=== PATIENT | male | born 1955 | race Caucasian/White ===

== ENCOUNTER 2018-08-13 23:11 | Inpatient (IN) ==
[2018-08-13] MEDS ORDERED: Azithromycin 500 MG in D5% in Water 250 ML IVPB ONE (23:21)
[2018-08-13] MEDS ORDERED: Ipratropium/Albuterol Neb 3 ML IH ONE (23:21)
[2018-08-13] MEDS ORDERED: methylPREDNISolone 125 MG/2 ML VIAL IVP ONE (23:21)
[2018-08-13] MEDS ORDERED: 0.9 % Sodium Chloride 1,000 ML IVC ONE (23:21)
[2018-08-13] MEDS ORDERED: cefTRIAXone 2,000 MG in Water for inj. (sterile) 20 ML 10 ML IVP ONE (23:21)
--- NOTE | 2018-08-13 23:21 | Emergency Department Note ---
Disposition Clinical Impression: Acute exacerbation of chronic obstructive airways disease Disposition: Admitted As Inpatient Condition: Fair Referrals: Mary Beth Euceda CNP [Primary Care Provider] - Forms: ED Satisfaction Letter SOB HPI - General Chief Complaint: ED Shortness of Breath/Dyspnea Stated Complaint: difficulty breathing Time Seen by Provider: 08/13/18 23:15 Source: patient, EMS Mode of arrival: EMS Limitations: no limitations Nursing Notes Reviewed: Yes Vital Signs Reviewed: Yes - History of Present Illness Patient reports he has had increased congestion and cough for 7-10 days. In the last 24 hours his breathing is "getting worse" and he is much more wheezy with a dry cough. States his secretions feel thick and he cannot get them up now. States he has had this before with COPD. He usually has his handheld inhalers and aerosols available. He was at his daughter's house and they were not around tonight. He has developed a feeling of chills and possible fever. His temperature here is 101.2. States he is sore in his chest with coughing but den ies other chest pain. He reports some nausea without vomiting as well as diffuse muscle aches and malaise. He has not been having diaphoresis. Denies any history of heart failure or any artery disease but his old record indicates both heart failure, myocardial infarction and previous history of some atrial fibrillation. Denies any lower extremity swelling, immobilization or injury. He states he has been exposed to a grandson who has been ill. He has been on prednisone by his family doctor for the last 5 days without much improvement. He states he has been a smoker since age 10 and he continues to smoke. Pt Subjective Complaint: shortness of breath Onset (ago): week(s) Context: recent illness Severity: moderate, severe Consistency/Duration: gradually worsening Improves with: bronchodilators Worsens with: coughing Known history of: COPD Associated symptoms: Reports: chest pain, pain with inspiration, cough, wheezing, sputum production, nausea/vomiting. Denies: fever, orthopnea, lower extremity pain, polyuria, polydipsia, parasthesias, palpitations, hemoptysis, diaphoresis, syncope, abdominal pain, rash Treatment prior to arrival: oxygen, bronchodilator Cough Description: Voluntary, Bronchospastic, Rattling, Wheezy Cough Frequency: Intermittent Sputum production: No - Related Data Home oxygen amount: 2 liters Home Medications Medication Instructions Recorded Confirmed Daliresp 500 mcg PO DAILY 04/24/15 08/13/18 Lisinopril 20 mg PO DAILY 04/24/15 08/13/18 Oxygen 2 l IH AD 04/24/15 08/13/18 Paroxetine 40 mg PO DAILY 04/24/15 08/13/18 ALPRAZolam [Xanax 0.5 MG Tablet] 0.5 mg PO Q6H 10/29/17 Atorvastatin [Lipitor] 40 mg PO HS 10/29/17 08/13/18 Fluticasone/Vilanterol [Breo 1 each IH 08/13/18 Ellipta 100-25 Mcg INH] Ibuprofen [Ibu] 800 mg PO 08/13/18 Tiotropium [Spiriva] 18 mcg IH 0700 08/13/18 08/13/18 Tramadol HCl [Ultram] 100 mg PO TID PRN 08/13/18 08/13/18 predniSONE [PredniSONE] 20 mg PO DAILY 08/13/18 08/13/18 Previous Rx's Medication Instructions Recorded Amoxicillin/Clavulanate [Augmentin] 875 mg PO BIDWM #10 tablet 10/30/17 Allergies Allergy/AdvReac Type Severity Reaction Status Date / Time No Known Allergies Allergy Verified 08/13/18 23:19 All systems ED: reviewed and negative except as stated. Past Medical History - Past Medical History Attestation: Yes The following information was validated with the patient. Source: patient, old records reviewed, obtained from family, nursing notes reviewed Medical history: Reports: arthritis, asthma, atrial fibrillation, CHF, COPD, GERD, hyperlipidemia, hypertension, myocardial infarction Surgical history: Reports: orthopedic, other (Bilateral leg surgery) Psychiatric history: Reports: anxiety, bipolar, depression - Social History Smoking Status: Current every day smoker Smokeless Tobacco Status: No Alcohol use: Reports: recent Drug use: Reports: none Physical Exam - General Limitations: physical limitation General appearance: alert, anxious - Head Head exam: atraumatic, normocephalic, normal inspection - Eye Eye exam: Present: normal appearance, PERRL, EOMI - ENT ENT exam: normal exam, normal oropharynx, mucous membranes moist - Neck Neck exam: Present: normal inspection, full ROM, trachea midline. Absent: tenderness, meningismus, lymphadenopathy - Chest Chest inspection: Present: normal inspection, symmetric chest wall rise - Respiratory Respiratory exam: Present: respiratory distress, wheezes, prolonged expiratory phase. Absent: accessory muscle use - Cardiovascular Cardiovascular exam: Present: regular rate, normal rhythm, tachycardia, normal heart sounds. Absent: JVD - Abdominal Exam Abdominal exam: Present: soft, Non-Tender, normal bowel sounds. Absent: tenderness, distention, guarding, rebound, rigidity - Extremities Exam Extremities exam: Present: normal inspection, full ROM, normal capillary refill. Absent: tenderness, pedal edema, calf tenderness - Expanded Lower Extremity Exam Neurovascular/Tendon exam: Present: normal capillary refill. Absent: motor deficit, sensory deficit, tendon deficit Gait: not tested/not observed - Back Exam Back exam: Present: normal inspection, full ROM. Absent: tenderness - Neurological Exam Neurological exam: Present: alert, oriented X3 - Psychiatric Psychiatric exam: Present: normal affect, normal mood - Skin Skin exam: Present: warm, dry, intact, normal color. Absent: diaphoresis, pa llor Course Course Narrative: 0020: With return of testing, the patient is improved but still has a heart rate of 130. He is saturating 99% on supplemental oxygen. Blood pressure is currently 145/91. He has been able to rest and sleep the department. Care is discussed with Dr. Randall for further hydration, antibiotic coverage and steroid administration. He will need to continue with aerosols per respiratory protocol. Vital Signs Temperature 101.2 F H 08/13/18 23:13 Pulse Rate 124 08/13/18 23:13 Respiratory Rate 28 08/13/18 23:13 Blood Pressure 139/82 08/13/18 23:13 O2 Sat by Pulse Oximetry 92 08/13/18 23:13 Temperature 101.2 F H 08/13/18 23:13 Pulse Rate 124 08/14/18 00:07 Respiratory Rate 34 08/14/18 00:07 Blood Pressure 151/103 08/14/18 00:07 O2 Sat by Pulse Oximetry 94 08/14/18 00:07 Oxygen Delivery Oxygen Delivery Nasal Cannula Shortness of Breath/Dyspnea - Differential Diagnosis Likely: acute exacerbation of chronic obstructive airways disease, congestive heart failure, pneumonia, asthma with exacerbation - Medical Records Medical records reviewed: Yes I reviewed the patient's medical records. - Lab Data Lab results reviewed: Yes I reviewed the patient's lab results. Lab results narrative: Influenza A and influenza B are negative. Result diagrams: 08/13/18 23:41 08/13/18 23:41 Lab Results 08/13/18 08/13/18 08/13/18 Range/Units 23:41 23:41 23:55 WBC 10.1 (4.3-11.1) K/mcL RBC 4.20 (4.19-5.50) M/mcL Hgb 13.4 (12.9-16.9) g/dL Hct 40.0 (37.5-50.1) % MCV 95.2 (83.0-100.0) fL MCH 31.9 (28.0-33.3) pg MCHC 33.5 (31.6-35.5) g/dL RDW 12.6 (11.5-14.5) % Plt Count 260 (140-400) K/mcL MPV 9.4 (9.4-12.4) fL Immature Gran % 1.1 (0-4) % Seg Neutrophils % 81.9 % Lymphocytes % 6.6 % Monocytes % 9.7 % Eosinophils % 0.1 % Basophils % 0.6 % Neutrophils # 8.3 (1.6-8.9) K/mcL Lymphocytes # 0.7 (0.6-4.6) K/mcL Monocytes # 1.0 (0.0-1.3) K/mcL Eosinophils # 0.0 (0.0-0.6) K/mcL Basophils # 0.1 (0.0-0.2) K/mcL Sodium 138 (136-145) mEq/L Potassium 4.3 (3.5-5.1) mEq/L Chloride 102 (98-107) mEq/L Carbon Dioxide 31 H (23-29) mEq/L BUN 17 (8-23) mg/dL Creatinine 0.91 (0.70-1.30) mg/dL Est GFR ( Amer) > 60 (> 60) Est GFR (Non-Af Amer) > 60 (> 60) BUN/Creatinine Ratio 19 (6-26) Glucose 193 H (70-105) mg/dL Calculated Osmolality 293 (280-300) Lactic Acid 1.6 (0.5-2.2) mmol/L Calcium 9.0 (8.6-10.3) mg/dL Troponin I < 0.03 (< 0.04) ng/mL - Radiology Data Radiology results reviewed: Yes I reviewed the patient's radiology results. Single view chest x-ray is performed. This does not demonstrate evidence for infiltrate, effusion, pneumothorax, foreign body or heart failure. The cardiac silhouette is normal. I do not see abnormality to the osseous structures of the chest. This is on my interpretation. Impressions Chest X-Ray 08/13/18 23:21 IMPRESSION: No acute cardiopulmonary abnormality. D/ / Denys Sumner MD / Denys Sumner MD Interpreting Provider: Denys Sumner MD - EKG Data EKG attestation: Yes I reviewed and interpreted this EKG. EKG shows normal: Reports: sinus rhythm, axis, intervals, QRS complexes, ST-T waves Rate: Reports: tachycardia (131) Interpretation: Reports: no acute changes, other (Sinus tachycardia)
[2018-08-13 23:56] LABS: Basophils # 0.1 K/mcL (0.0-0.2); Basophils % 0.6 %; Eosinophils % 0.1 %; Hemoglobin 13.4 g/dL (12.9-16.9); Immature Granulocytes % 1.1 % (0-4); Lymphocytes # 0.7 K/mcL (0.6-4.6); Lymphocytes % 6.6 %; Mean Corpuscular HGB Conc 33.5 g/dL (31.6-35.5); Mean Corpuscular Hemoglobin 31.9 pg (28.0-33.3); Mean Corpuscular Volume 95.2 fL (83.0-100.0); Mean Platelet Volume 9.4 fL (9.4-12.4); Monocytes % 9.7 %; Neutrophils # 8.3 K/mcL (1.6-8.9); Platelet Count 260 K/mcL (140-400); Red Cell Distribution Width 12.6 % (11.5-14.5); Segmented Neutrophils % 81.9 %
[2018-08-14 00:15] LABS: BUN/Creatinine Ratio 19 (6-26); Blood Urea Nitrogen 17 mg/dL (8-23); Carbon Dioxide 31 mEq/L (23-29); Chloride 102 mEq/L (98-107); Glucose 193 mg/dL (70-105); Osmolality,Calculated 293 (280-300); Potassium 4.3 mEq/L (3.5-5.1); Sodium 138 mEq/L (136-145); eGFR For Non-African Americans > 60 (> 60)
[2018-08-14 00:16] LABS: Troponin I < 0.03 ng/mL (< 0.04)
[2018-08-14] MEDS ORDERED: Ondansetron ODT 4 MG TAB.RAPDIS SL PRN (01:10)
[2018-08-14] MEDS ORDERED: traMADol 50 MG TABLET PO PRN (01:10)
[2018-08-14] MEDS ORDERED: Naloxone 0.4 MG/ML INJ IVP PRN (01:10)
[2018-08-14] MEDS: 0.9 % Sodium Chloride 1,000 ML IVC SCH ×2 (02:02→08:25)
[2018-08-14] MEDS: Ipratropium/Albuterol Neb 3 ML IH SCH ×4 (04:02→21:13)
[2018-08-14] MEDS: Albuterol 2.5 MG/3 ML NEBULIZER IH PRN ×2 (06:07→17:50)
[2018-08-14] MEDS: predniSONE 20 MG TABLET PO SCH ×2 (08:25→15:54)
[2018-08-14] MEDS: Lisinopril 20 MG TABLET PO SCH (08:25)
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
[2018-08-14] MEDS: cefTRIAXone 2,000 MG in 0.9 % Sodium Chloride Mini Bag 100 ML IVPB SCH (15:55)
[2018-08-14] MEDS: Azithromycin 500 MG in D5% in Water 250 ML IVPB SCH (15:56)
[2018-08-14] MEDS: Budesonide/Formoterol 160/4.5 1 PUFF INH IH SCH ×2 (17:41→21:13)
[2018-08-15] MEDS: Ipratropium/Albuterol Neb 3 ML IH SCH ×4 (03:11→22:45)
[2018-08-15] MEDS: predniSONE 20 MG TABLET PO SCH ×2 (07:44→16:42)
[2018-08-15] MEDS: Albuterol 2.5 MG/3 ML NEBULIZER IH PRN ×2 (08:05→20:22)
[2018-08-15] MEDS: Acetaminophen 325 MG TABLET PO PRN (08:11)
[2018-08-15] MEDS: Lisinopril 20 MG TABLET PO SCH (08:13)
[2018-08-15 08:16] LABS: Basophils % 0.3 %; Hematocrit 40.3 % (37.5-50.1); Hemoglobin 13.2 g/dL (12.9-16.9); Immature Granulocytes % 0.5 % (0-4); Lymphocytes # 0.9 K/mcL (0.6-4.6); Lymphocytes % 9.1 %; Mean Corpuscular HGB Conc 32.8 g/dL (31.6-35.5); Mean Corpuscular Volume 94.6 fL (83.0-100.0); Mean Platelet Volume 9.4 fL (9.4-12.4); Monocytes % 10.1 %; Neutrophils # 7.7 K/mcL (1.6-8.9); Platelet Count 229 K/mcL (140-400); Red Blood Count 4.26 M/mcL (4.19-5.50)
[2018-08-15] MEDS: Budesonide/Formoterol 160/4.5 1 PUFF INH IH SCH ×2 (10:35→22:46)
--- NOTE | 2018-08-15 11:09 | Internal Med Progress Note ---
Date of Encounter: 08/15/18 Time of Encounter: 11:00 - Assessment and plan (1) COPD exacerbation Current Visit: No Status: Acute Assessment and plan: August 15. Continue prednisone, Symbicort, Singulair, and antibiotics with n ebulizers. (2) Hypertension Current Visit: No Status: Chronic Assessment and plan: August 15. Continue lisinopril Qualifiers: Hypertension type: essential hypertension Qualified Code(s): I10 - Essential (primary) hypertension (3) Anxiety and depression Current Visit: No Status: Acute Assessment and plan: August 15. Continue Paxil. Xanax does not appear necessary. - Subjective Interval history: August 15. He has no new complaints and feels better. - Constitutional Vitals: Temp Pulse Resp BP Pulse Ox 100.7 F H 116 16 123/78 93 08/15/18 09:03 08/15/18 07:42 08/15/18 10:35 08/15/18 07:42 08/15/18 10:35 Exam: He is sitting in bed wearing oxygen by mask. His lungs show decreased wheezing from yesterday. No inspiratory crackles are heard. He is less dyspneic overall. I reviewed his medications and lab results. Internal Medicine: Result - Labs CBC & Chem 7: 08/15/18 07:30 08/13/18 23:41 Labs: Short CBC 08/15/18 Range/Units 07:30 WBC 9.6 (4.3-11.1) K/mcL Hgb 13.2 (12.9-16.9) g/dL Hct 40.3 (37.5-50.1) % Plt Count 229 (140-400) K/mcL Neutrophils # 7.7 (1.6-8.9) K/mcL Consult Discharge Plan - Plan Referrals: Mary Beth Euceda, [employer] [Primary Care Provider] - 1 week
[2018-08-15] MEDS: cefTRIAXone 2,000 MG in 0.9 % Sodium Chloride Mini Bag 100 ML IVPB SCH (16:42)
[2018-08-15] MEDS: Azithromycin 500 MG in D5% in Water 250 ML IVPB SCH (17:56)
[2018-08-16] MEDS: Acetaminophen 325 MG TABLET PO PRN ×2 (02:56→14:05)
[2018-08-16] MEDS: Ipratropium/Albuterol Neb 3 ML IH SCH ×4 (04:14→21:50)
[2018-08-16] MEDS: predniSONE 20 MG TABLET PO SCH (07:29)
[2018-08-16] MEDS: Lisinopril 20 MG TABLET PO SCH (08:18)
[2018-08-16] MEDS: Budesonide/Formoterol 160/4.5 1 PUFF INH IH SCH ×2 (09:44→21:50)
--- NOTE | 2018-08-16 11:45 | Internal Med Progress Note ---
Date of Encounter: 08/16/18 Time of Encounter: 11:25 - Assessment and plan (1) COPD exacerbation Current Visit: No Status: Acute Assessment and plan: August 15. Continue prednisone, Symbicort, Singulair, and antibiotics with n ebulizers. August 16. Continue present regimen. Possible discharge home tomorrow if stable. (2) Hypertension Current Visit: No Status: Chronic Assessment and plan: August 15. Continue lisinopril Qualifiers: Hypertension type: essential hypertension Qualified Code(s): I10 - Essential (primary) hypertension (3) Anxiety and depression Current Visit: No Status: Acute Assessment and plan: August 15. Continue Paxil. Xanax does not appear necessary. - Subjective Interval history: August 15. He has no new complaints and feels better. August 16. He has no new complaints. He is still dyspneic. He has minimally productive cough. - Constitutional Vitals: Temp Pulse Resp BP Pulse Ox 100.3 F H 110 18 119/75 91 08/16/18 11:00 08/16/18 11:00 08/16/18 11:00 08/16/18 11:00 08/16/18 11:00 Exam: He appears dyspneic lying in bed. His affect is overall cheerful. I reviewed his medications and lab results. Chest CT done earlier today showed right upper lobe and right lower lobe infiltrate with nonspecific mediastinal lymphadenopathy. Follow-up CT scan in 6 months was recommended. Internal Medicine: Result - Labs CBC & Chem 7: 08/15/18 07:30 08/13/18 23:41 - Impressions Impressions Chest CT 08/16/18 09:49 IMPRESSION: Mild bibasilar bronchiectasis with bronchial wall thickening and a tree-in-bud nodular infiltrate in the right upper and lower lobes suspicious for an inflammatory/infectious process/pneumonia as questioned clinically. Complete assessment of the lungs is compromised by respiratory motion. Nonspecific mediastinal lymphadenopathy likely benign and reactive. Follow-up CT in 6 months is recommended. Small pericardial effusion. Atherosclerotic vascular calcifications. Emphysematous changes. D/ / 08/16/2018 10:51:32 Juan M Bernardo MD / [place] Interpreting Provider: Juan M Bernardo MD Consult Discharge Plan - Plan Referrals: Mary Beth Euceda CNP [Primary Care Provider] - 1 week
--- NOTE | 2018-08-16 12:09 | Internal Med History&Physical ---
Date of Encounter: 08/17/18 Time of Encounter: 15:00 Assessment and Plan (1) COPD exacerbation Current visit: No Status: Acute (2) Hypertension Current visit: No Status: Chronic Qualifiers: Hypertension type: essential hypertension Qualified Code(s): I10 - Essential (primary) hypertension (3) Anxiety and depression Current visit: No Status: Acute Internal Medicine - H&P: HPI Chief complaint: Dyspnea Admitted From: Emergency Dept Plans for Post Hospital Care: Home History of present illness: Mr. Maciel is a 62 year old male Past Med Surg Social Fam HX - Past Medical History Medical history: arthritis, asthma, atrial fibrillation, CHF, COPD, GERD, hyperlipidemia, hypertension, myocardial infarction Psychiatric history: anxiety, bipolar, depression - Past Surgical History Surgical History: orthopedic, other Additional surgical history: bilat leg sx, - Social History Smoking Status: Current every day smoker Packs per day: 1.5 Smokeless Tobacco Status: No Alcohol use: recent Drug use: none Internal Medicine - H&P: Meds Daliresp 500 mcg PO DAILY 04/24/15 [History] Lisinopril 20 mg PO DAILY 04/24/15 [History] Paroxetine 40 mg PO DAILY 04/24/15 [History] RX: Oxygen 2 l IH AD 04/24/15 [History] RX: ALPRAZolam [Xanax 0.5 MG Tablet] 0.5 mg PO Q6H 10/29/17 [History] RX: Atorvastatin [Lipitor] 40 mg PO HS 10/29/17 [History] Amoxicillin/Clavulanate [Augmentin] 875 mg PO BIDWM #10 tablet 10/30/17 [Rx] Fluticasone/Vilanterol [Breo Ellipta 100-25 Mcg INH] 1 each IH 08/13/18 [History] Ibuprofen [Ibu] 800 mg PO 08/13/18 [History] RX: predniSONE [PredniSONE] 20 mg PO DAILY 08/13/18 [History] Tiotropium [Spiriva] 18 mcg IH 0700 08/13/18 [History] Tramadol HCl [Ultram] 100 mg PO TID PRN 08/13/18 [History] Allergy/AdvReac Type Severity Reaction Status Date / Time No Known Allergies Allergy Verified 08/13/18 23:19 All Systems PM: A 10-system review of systems was performed and is negative for pertinent findings except as documented above in the HPI. - Constitutional Vitals: Temp Pulse Resp BP Pulse Ox 100.3 F H 110 18 119/75 91 08/16/18 11:00 08/16/18 11:00 08/16/18 11:00 08/16/18 11:00 08/16/18 11:00 Internal Med - H&P Results - Labs CBC & Chem 7: 08/17/18 04:43 08/13/18 23:41 - Impressions ITS Impressions Chest X-Ray 08/13/18 23:21 IMPRESSION: No acute cardiopulmonary abnormality. D/ / Denys Sumner MD / Denys Sumner MD Interpreting Provider: Denys Sumner MD Chest CT 08/16/18 09:49 IMPRESSION: Mild bibasilar bronchiectasis with bronchial wall thickening and a tree-in-bud nodular infiltrate in the right upper and lower lobes suspicious for an inflammatory/infectious process/pneumonia as questioned clinically. Complete assessment of the lungs is compromised by respiratory motion. Nonspecific mediastinal lymphadenopathy likely benign and reactive. Follow-up CT in 6 months is recommended. Small pericardial effusion. Atherosclerotic vascular calcifications. Emphysematous changes. D/ / 08/16/2018 10:51:32 Juan M Bernardo MD / [place] Interpreting Provider: Juan M Bernardo MD
[2018-08-16] MEDS: Azithromycin 500 MG in D5% in Water 250 ML IVPB SCH (17:05)
[2018-08-16] MEDS: predniSONE 10 MG TABLET PO SCH (17:05)
[2018-08-16] MEDS: cefTRIAXone 2,000 MG in 0.9 % Sodium Chloride Mini Bag 100 ML IVPB SCH (18:13)
[2018-08-17] MEDS ORDERED: Mag Hydrox/Al Hydrox/Simeth 30 ML UDC PO PRN (01:36)
[2018-08-17] MEDS: Ipratropium/Albuterol Neb 3 ML IH SCH ×2 (03:29→10:32)
[2018-08-17 05:21] LABS: Basophils % 0.5 %; Hematocrit 37.5 % (37.5-50.1); Hemoglobin 12.4 g/dL (12.9-16.9); Immature Granulocytes % 0.5 % (0-4); Lymphocytes # 1.3 K/mcL (0.6-4.6); Lymphocytes % 23.3 %; Mean Corpuscular HGB Conc 33.1 g/dL (31.6-35.5); Mean Corpuscular Hemoglobin 30.8 pg (28.0-33.3); Mean Corpuscular Volume 93.3 fL (83.0-100.0); Mean Platelet Volume 9.3 fL (9.4-12.4); Neutrophils # 3.3 K/mcL (1.6-8.9); Platelet Count 203 K/mcL (140-400); Red Blood Count 4.02 M/mcL (4.19-5.50); Red Cell Distribution Width 12.9 % (11.5-14.5); Segmented Neutrophils % 58.7 %
[2018-08-17] MEDS ORDERED: *HR* Enoxaparin 40 MG/0.4 ML SYRINGE SQ SCH (06:00)
[2018-08-17 08:10] VITALS: BP 106/59
[2018-08-17] MEDS: predniSONE 10 MG TABLET PO SCH (08:29)
[2018-08-17] MEDS: Lisinopril 20 MG TABLET PO SCH (08:29)
--- NOTE | 2018-08-17 08:46 | Discharge Summary ---
Orders not resulted at time of discharge: Pending orders 08/13/18 23:55 Culture,Blood [BC] Stat Date of Encounter: 08/17/18 Time of Encounter: 08:35 - Discharge Diagnosis (1) COPD exacerbation Priority: Primary Status: Acute (2) Pneumonia Priority: Secondary Status: Acute Qualifiers: Pneumonia type: due to unspecified organism Laterality: right Lung location: unspecified part of lung Qualified Code(s): J18.9 - Pneumonia, unspecified organism (3) Hypertension Priority: Secondary Status: Chronic Qualifiers: Hypertension type: essential hypertension Qualified Code(s): I10 - Essential (primary) hypertension (4) Anxiety and depression Priority: Secondary Status: Chronic Hospital course: Mr. Maciel is a 62 year old male who came to emergency room stating he had increased dyspnea onset approximate 5 days ago. He saw his PCP who gave him a prescription for prednisone and Augmentin. There was little improvement so he came to emergency room. He was evaluated and was felt to have exacerbation of COPD and admitted to [facility] floor for ongoing care needs. Initial orders were written by the emergency room physician. I saw him on August 14 performed a history and physical. He was started empirically on IV Rocephin and Zithromax with Solu-Medrol. Influenza testing in emergency room was negative for influenza A and B. He initially made slow progress in recovery. Chest CT was ordered 08/16/2018 to further evaluate. There was evidence of right upper lobe and right lower lobe infiltrates suspicious for pneumonia. He had additional gradual improvement and felt stable for discharge home on August 17. He will continue with oral antibiotic and probiotic for 2 additional days at discharge. WBC was normal at 5.6 on day of discharge with no left shift on differential. He will follow with his PCP Mary Beth Euceda CNP within 1 week. I encouraged him to become a nonsmoker. He will continue to use home oxygen. - Time Spent with Patient Total time spent providing and/or coordinating discharge services: - Discharge Medications Prescriptions: New Cefuroxime PO [Ceftin] 500 mg PO Q12HR #4 tablet Azithromycin [Zithromax] 250 mg PO DAILY #2 tablet Lactobacillus [Culturelle] 1 each PO BID #4 cap.sprink Continue Oxygen 2 l IH AD Lisinopril 20 mg PO DAILY Paroxetine 40 mg PO DAILY Daliresp 500 mcg PO DAILY Atorvastatin [Lipitor] 40 mg PO HS ALPRAZolam [Xanax 0.5 MG Tablet] 0.5 mg PO Q6H Tramadol HCl [Ultram] 100 mg PO TID PRN PRN Reason: Pain predniSONE [PredniSONE] 20 mg PO DAILY Tiotropium [Spiriva] 18 mcg IH 0700 Ibuprofen [Ibu] 800 mg PO Fluticasone/Vilanterol [Breo Ellipta 100-25 Mcg INH] 1 each IH Discontinued Amoxicillin/Clavulanate [Augmentin] 875 mg PO BIDWM #10 tablet Home Medications: Daliresp 500 mcg PO DAILY 04/24/15 [History] Lisinopril 20 mg PO DAILY 04/24/15 [History] Oxygen 2 l IH AD 04/24/15 [History] Paroxetine 40 mg PO DAILY 04/24/15 [History] ALPRAZolam [Xanax 0.5 MG Tablet] 0.5 mg PO Q6H 10/29/17 [History] Atorvastatin [Lipitor] 40 mg PO HS 10/29/17 [History] Fluticasone/Vilanterol [Breo Ellipta 100-25 Mcg INH] 1 each IH 08/13/18 [History] Ibuprofen [Ibu] 800 mg PO 08/13/18 [History] Tiotropium [Spiriva] 18 mcg IH 0700 08/13/18 [History] Tramadol HCl [Ultram] 100 mg PO TID PRN 08/13/18 [History] predniSONE [PredniSONE] 20 mg PO DAILY 08/13/18 [History] Azithromycin [Zithromax] 250 mg PO DAILY #2 tablet 08/17/18 [Rx] Cefuroxime PO [Ceftin] 500 mg PO Q12HR #4 tablet 08/17/18 [Rx] Lactobacillus [Culturelle] 1 each PO BID #4 cap.sprink 08/17/18 [Rx] Allergies/Adverse Reactions: Allergy/AdvReac Type Severity Reaction Status Date / Time No Known Allergies Allergy Verified 08/13/18 23:19 Date of admission: 08/16/18 11:43 Primary care physician: Mary Beth Euceda CNP - Constitutional Vitals: Temp Pulse Resp BP Pulse Ox 98.6 F 98 17 106/59 93 08/17/18 08:08 08/17/18 08:08 08/17/18 08:08 08/17/18 08:08 08/17/18 08:08 - Patient Status Disposition: Home, Self-Care Condition: Fair - Discharge Instructions Follow Up With: Mary Beth Euceda CNP [Primary Care Provider] - 1 week - Diet and Activity Activity: resume usual activities as tolerated, wear oxygen at all times Diet: advance to your usual diet
[2018-08-17] MEDS: Budesonide/Formoterol 160/4.5 1 PUFF INH IH SCH (10:32)
--- NOTE | 2018-08-17 20:09 | Electrocardiograph Report ---
[place] [id number] Test Date: 2018-08-13 Pat Name: Dean Maciel Department: EDP-14 Room: [facility] Gender: M Professional Engineer: : [id number] Requested By: Rodney Montero Order Number: [id number] Reading MD: Elena Ybarra Measurements Intervals Premium Rate: 131 P: 82 TX: 135 QRS: 84 QRSD: 84 T: 74 QT: 273 QTc: 403 Interpretive Statements Sinus tachycardia Borderline right axis deviation Electronically Signed On 08-17-2018 20:08:18 EST by Elena Ybarra
== END 2018-08-17 12:00 | disposition home or self-care (01) | DRG 190 ==
LOC: EMEROOPIK 23:11 → INPPIK 23:11
PROVIDERS: ADMIT Internal Medicine; ATTEND Internal Medicine

== ENCOUNTER 2018-10-04 20:59 | Inpatient (IN) ==
--- NOTE | 2018-10-04 21:17 | Emergency Department Note ---
Disposition Clinical Impression: Pneumonia Disposition: Admitted As Inpatient Condition: Good Referrals: Mary Beth Euceda, IAM [Primary Care Provider] - Forms: ED Satisfaction Letter Time of Disposition: 22:30 SOB HPI - General Chief Complaint: ED Shortness of Breath/Dyspnea Stated Complaint: Difficulty breathing Time Seen by Provider: 10/04/18 21:17 Source: patient, EMS Mode of arrival: EMS Limitations: no limitations Nursing Notes Reviewed: Yes Vital Signs Reviewed: Yes - History of Present Illness 63-year-old male who presents today with 3 days of worsening shortness of breath and cough. He has a history of COPD and wears 2 L nasal cannula all the time. He states his been drinking lots of water and using lots of albuterol home but he states his disability loosening up. He states that he has not recently been on steroids he has had to be hospitalized in the past for his breathing. He has not been on any recent antibiotics. Patient states he is a smoker. He states he has had a fever and a productive cough at home. Pt Subjective Complaint: shortness of breath - Related Data Home Medications Medication Instructions Recorded Confirmed Daliresp 500 mcg PO DAILY 04/24/15 08/13/18 Lisinopril 20 mg PO DAILY 04/24/15 08/13/18 Oxygen 2 l IH AD 04/24/15 08/13/18 Paroxetine 40 mg PO DAILY 04/24/15 08/13/18 ALPRAZolam [Xanax 0.5 MG Tablet] 0.5 mg PO Q6H 10/29/17 Atorvastatin [Lipitor] 40 mg PO HS 10/29/17 08/13/18 Fluticasone/Vilanterol [Breo 1 each IH 08/13/18 Ellipta 100-25 Mcg INH] Ibuprofen [Ibu] 800 mg PO 08/13/18 Tiotropium [Spiriva] 18 mcg IH 0700 08/13/18 08/13/18 Tramadol HCl [Ultram] 100 mg PO TID PRN 08/13/18 08/13/18 predniSONE [PredniSONE] 20 mg PO DAILY 08/13/18 08/13/18 Previous Rx's Medication Instructions Recorded Azithromycin [Zithromax] 250 mg PO DAILY #2 tablet 08/17/18 Cefuroxime PO [Ceftin] 500 mg PO Q12HR #4 tablet 08/17/18 Lactobacillus [Culturelle] 1 each PO BID #4 cap.sprink 08/17/18 Allergies Allergy/AdvReac Type Severity Reaction Status Date / Time No Known Allergies Allergy Verified 08/13/18 23:19 Review of Systems: All other systems are negative except as noted/marked Chart generated with voice recognition software Nursing notes reviewed Old records reviewed Past Medical History - Past Medical History Attestation: Yes The following information was validated with the patient. Source: patient, old records reviewed, nursing notes reviewed Medical history: Reports: arthritis, asthma, atrial fibrillation, CHF, COPD, GERD, hyperlipidemia, hypertension, myocardial infarction Surgical history: Reports: orthopedic, other Psychiatric history: Reports: anxiety, bipolar, depression - Social History Smoking Status: Current every day smoker Smokeless Tobacco Status: No Alcohol use: Reports: recent Drug use: Reports: none Physical Exam General: Mild distress Head: normocephalic, atraumatic Eyes: EOMI, PERRLA mouth: Dry mucous membranes Neck: NO CLA, Supple Chest wall: Diminished coarse lung sounds bilaterally Lungs: Tachypneic Heart: Tachycardic Abd: soft, nontender, BS normal : deferred MSK: strength equal in all four extremities Ext: moves all four extremities, no obvious deformities Skin: cap refill normal, warm, dry neuro : CN2-12 grossly intact, A&Ox3 Psych: normal affect, not anxious - General Limitations: no limitations General appearance: alert Course Vital Signs O2 Sat by Pulse Oximetry 93 10/04/18 21:00 Temperature 98.9 F 10/04/18 21:02 Pulse Rate 114 10/04/18 22:28 Respiratory Rate 24 10/04/18 22:28 Blood Pressure 125/54 10/04/18 22:28 O2 Sat by Pulse Oximetry 92 10/04/18 22:28 Oxygen Delivery Oxygen Delivery Nasal Cannula Shortness of Breath/Dyspnea - [facility] Narrative Medical decision making narrative: 63-year-old male presents today with worsening shortness of breath for last 3 days. He has pneumonia today. He is remaining tachycardic beginning of a fluids. I think some of his tachycardia is all the albuterol is had. We will give him a Xopenex is still wheezing. We got cultures be started antibiotics. Again some magnesium to help with his breathing. He states is feeling better at this time. He is satting 93-94% on his 3 L nasal cannula. He is resting comfortably on reevaluation. He still wheezing but it is improving. I spoke with Dr. Randall about this patient he was agreeable to keeping him here. - Medical Records Medical records reviewed: Yes I reviewed the patient's medical records. - Lab Data Lab results reviewed: Yes I reviewed the patient's lab results. Result diagrams: 10/04/18 21:38 10/04/18 21:38 Lab Results 10/04/18 10/04/18 10/04/18 Range/Units 21:38 21:38 21:38 WBC 16.3 H (4.3-11.1) K/mcL RBC 3.49 L (4.19-5.50) M/mcL Hgb 10.9 L (12.9-16.9) g/dL Hct 32.9 L (37.5-50.1) % MCV 94.3 (83.0-100.0) fL MCH 31.2 (28.0-33.3) pg MCHC 33.1 (31.6-35.5) g/dL RDW 13.4 (11.5-14.5) % Plt Count 295 (140-400) K/mcL MPV 9.8 (9.4-12.4) fL Immature Gran % 0.4 (0-4) % Seg Neutrophils % 74.9 % Lymphocytes % 12.7 % Monocytes % 11.2 % Eosinophils % 0.4 % Basophils % 0.4 % Neutrophils # 12.2 H (1.6-8.9) K/mcL Lymphocytes # 2.1 (0.6-4.6) K/mcL Monocytes # 1.8 H (0.0-1.3) K/mcL Eosinophils # 0.1 (0.0-0.6) K/mcL Basophils # 0.1 (0.0-0.2) K/mcL PT 15.0 H (9.4-12.1) Seconds INR 1.3 APTT 33.5 (26.0-36.0) Seconds Sodium 134 L (136-145) mEq/L Potassium 3.9 (3.5-5.1) mEq/L Chloride 97 L (98-107) mEq/L Carbon Dioxide 29 (23-29) mEq/L BUN 19 (8-23) mg/dL Creatinine 0.88 (0.70-1.30) mg/dL Est GFR ( Amer) > 60 (> 60) Est GFR (Non-Af Amer) > 60 (> 60) BUN/Creatinine Ratio 22 (6-26) Glucose 202 H (70-105) mg/dL Calculated Osmolality 286 (280-300) Lactic Acid (0.5-2.2) mmol/L Calcium 9.7 (8.6-10.3) mg/dL Phosphorus 2.1 L (2.7-4.5) mg/dL Magnesium 1.8 (1.6-2.6) mg/dL Total Bilirubin 0.4 (0.3-1.0) mg/dL Direct Bilirubin 0.0 (0.0-0.2) mg/dL Indirect Bilirubin 0.4 (0.0-1.2) mg/dL AST 10 L (13-39) Units/L ALT 11 (7-52) Units/L Alkaline Phosphatase 85 (34-104) Units/L Troponin I < 0.03 (< 0.04) ng/mL Serum Total Protein 7.5 (6.4-8.9) g/dL Albumin 3.9 (3.5-5.7) g/dL Globulin 3.6 H (2.4-3.5) g/dL Albumin/Globulin Ratio 1.1 (1.1-2.2) 10/04/18 Range/Units 21:38 WBC (4.3-11.1) K/mcL RBC (4.19-5.50) M/mcL Hgb (12.9-16.9) g/dL Hct (37.5-50.1) % MCV (83.0-100.0) fL MCH (28.0-33.3) pg MCHC (31.6-35.5) g/dL RDW (11.5-14.5) % Plt Count (140-400) K/mcL MPV (9.4-12.4) fL Immature Gran % (0-4) % Seg Neutrophils % % Lymphocytes % % Monocytes % % Eosinophils % % Basophils % % Neutrophils # (1.6-8.9) K/mcL Lymphocytes # (0.6-4.6) K/mcL Monocytes # (0.0-1.3) K/mcL Eosinophils # (0.0-0.6) K/mcL Basophils # (0.0-0.2) K/mcL PT (9.4-12.1) Seconds INR APTT (26.0-36.0) Seconds Sodium (136-145) mEq/L Potassium (3.5-5.1) mEq/L Chloride (98-107) mEq/L Carbon Dioxide (23-29) mEq/L BUN (8-23) mg/dL Creatinine (0.70-1.30) mg/dL Est GFR ( Amer) (> 60) Est GFR (Non-Af Amer) (> 60) BUN/Creatinine Ratio (6-26) Glucose (70-105) mg/dL Calculated Osmolality (280-300) Lactic Acid 2.3 H (0.5-2.2) mmol/L Calcium (8.6-10.3) mg/dL Phosphorus (2.7-4.5) mg/dL Magnesium (1.6-2.6) mg/dL Total Bilirubin (0.3-1.0) mg/dL Direct Bilirubin (0.0-0.2) mg/dL Indirect Bilirubin (0.0-1.2) mg/dL AST (13-39) Units/L ALT (7-52) Units/L Alkaline Phosphatase (34-104) Units/L Troponin I (< 0.04) ng/mL Serum Total Protein (6.4-8.9) g/dL Albumin (3.5-5.7) g/dL Globulin (2.4-3.5) g/dL Albumin/Globulin Ratio (1.1-2.2) - Radiology Data Radiology results reviewed: Yes I reviewed the patient's radiology results. EXAMINATION: SINGLE XRAY VIEW OF THE CHEST 10/04/2018 9:33 pm COMPARISON: Chest CT 08/16/2018, chest radiograph 08/13/2018 HISTORY: ORDERING SYSTEM PROVIDED HISTORY: sob Shortness of breath and fever for 3 days. Initial evaluation. FINDINGS: Subtle airspace opacities in the mid left lung and bilateral lung bases with underlying reticulonodular opacities. Diffuse interstitial prominence with indistinct pulmonary vasculature but no definite interlobular septal thickening. No definite findings pneumothorax or pleural effusion. Normal mediastinal and cardiac contours. Mildly prominent hilar contours. No acute fracture. Healed right rib fractures. XR/XR chest 1V portable IMPRESSION: Reticulonodular opacities and superimposed subtle airspace opacities in the right lung base and mid to basilar left lung suggest pneumonia, potentially with underlying bronchiolitis as seen on the prior CT. D/ / Denys Carranza MD / Denys Carranza MD Interpreting Provider: Denys Carranza MD - EKG Data EKG attestation: Yes I reviewed and interpreted this EKG. EKG results narrative: EKG interpreted by myself as sinus tachycardia 113 a QTC [address] elevation
[2018-10-04] MEDS ORDERED: Albuterol 2.5 MG/3 ML NEBULIZER IH ONE (21:18)
[2018-10-04] MEDS ORDERED: methylPREDNISolone 125 MG/2 ML VIAL IVP ONE (21:18)
[2018-10-04] MEDS ORDERED: Azithromycin 500 MG in D5% in Water 250 ML IVPB ONE (21:18)
[2018-10-04] MEDS ORDERED: 0.9 % Sodium Chloride 1,000 ML IVC ONE ×3 (21:18→22:54)
[2018-10-04] MEDS ORDERED: cefTRIAXone 1,000 MG in Water for inj. (sterile) 20 ML 10 ML IVP ONE (21:18)
[2018-10-04] MEDS ORDERED: Ipratropium/Albuterol Neb 3 ML IH ONE (21:18)
[2018-10-04 21:50] LABS: Basophils # 0.1 K/mcL (0.0-0.2); Basophils % 0.4 %; Eosinophils # 0.1 K/mcL (0.0-0.6); Eosinophils % 0.4 %; Hematocrit 32.9 % (37.5-50.1); Hemoglobin 10.9 g/dL (12.9-16.9); Immature Granulocytes % 0.4 % (0-4); Lymphocytes # 2.1 K/mcL (0.6-4.6); Lymphocytes % 12.7 %; Mean Corpuscular HGB Conc 33.1 g/dL (31.6-35.5); Mean Corpuscular Hemoglobin 31.2 pg (28.0-33.3); Mean Corpuscular Volume 94.3 fL (83.0-100.0); Mean Platelet Volume 9.8 fL (9.4-12.4); Monocytes # 1.8 K/mcL (0.0-1.3); Monocytes % 11.2 %; Neutrophils # 12.2 K/mcL (1.6-8.9); Platelet Count 295 K/mcL (140-400); Red Blood Count 3.49 M/mcL (4.19-5.50); Red Cell Distribution Width 13.4 % (11.5-14.5); Segmented Neutrophils % 74.9 %
[2018-10-04 21:58] LABS: INR 1.3
[2018-10-04 22:00] LABS: Activated Partial Thrombo Time 33.5 Seconds (26.0-36.0)
[2018-10-04 22:10] LABS: Troponin I < 0.03 ng/mL (< 0.04)
[2018-10-04 22:11] LABS: Alanine Aminotransferase 11 Units/L (7-52); Albumin 3.9 g/dL (3.5-5.7); Albumin/Globulin Ratio 1.1 (1.1-2.2); Alkaline Phosphatase 85 Units/L (34-104); Aspartate Amino Transferase 10 Units/L (13-39); BUN/Creatinine Ratio 22 (6-26); Bilirubin,Indirect 0.4 mg/dL (0.0-1.2); Bilirubin,Total 0.4 mg/dL (0.3-1.0); Blood Urea Nitrogen 19 mg/dL (8-23); Calcium 9.7 mg/dL (8.6-10.3); Carbon Dioxide 29 mEq/L (23-29); Chloride 97 mEq/L (98-107); Globulin 3.6 g/dL (2.4-3.5); Glucose 202 mg/dL (70-105); Magnesium 1.8 mg/dL (1.6-2.6); Osmolality,Calculated 286 (280-300); Phosphorous 2.1 mg/dL (2.7-4.5); Potassium 3.9 mEq/L (3.5-5.1); Sodium 134 mEq/L (136-145); Total Protein 7.5 g/dL (6.4-8.9); eGFR For Non-African Americans > 60 (> 60)
[2018-10-04] MEDS ORDERED: Levalbuterol Neb 1.25 MG/3 ML IH STA (22:22)
[2018-10-04] MEDS ORDERED: NON-FORMULARY MEDICATION 1 EACH EACH (Oxygen [Oxygen] 2 L) IH SCH (22:54)
[2018-10-04] MEDS ORDERED: Ipratropium/Albuterol Neb 3 ML IH SCH (22:54)
[2018-10-04] MEDS ORDERED: Ondansetron 4 MG/2 ML VIAL IVP PRN (22:54)
[2018-10-04] MEDS ORDERED: *HR* HYDROcodone/Acet 5/325 mg TABLET PO PRN (22:54)
[2018-10-04] MEDS ORDERED: 0.9 % Sodium Chloride 1,000 ML IVC SCH ×2 (22:54)
[2018-10-04] MEDS ORDERED: MOM Conc 10 ML UD.LIQ PO PRN (22:54)
[2018-10-04] MEDS ORDERED: Acetaminophen 325 MG TABLET PO PRN (22:54)
[2018-10-04] MEDS ORDERED: Naloxone 0.4 MG/ML INJ IVP PRN (22:54)
[2018-10-04] MEDS ORDERED: Mag Hydrox/Al Hydrox/Simeth 30 ML UDC PO PRN (22:54)
[2018-10-04] MEDS ORDERED: Albuterol 2.5 MG/3 ML NEBULIZER IH PRN (23:30)
[2018-10-04] MEDS: 0.9 % Sodium Chloride 1,000 ML IVC SCH ×4 (23:51→23:59)
[2018-10-04] MEDS: Ipratropium/Albuterol Neb 3 ML IH SCH (23:52)
[2018-10-04] MEDS: ALPRAZolam 0.5 MG TABLET PO SCH (23:56)
[2018-10-05] MEDS ORDERED: Albuterol 2.5 MG/3 ML NEBULIZER IH SCH
[2018-10-05] MEDS: 0.9 % Sodium Chloride 1,000 ML IVC SCH ×5 (00:58→21:48)
[2018-10-05 02:18] LABS: Bilirubin,Urine Negative (Negative); Blood,Urine Negative (Negative); Clarity,Urine Clear (Clear); Color,Urine Yellow (Yellow); Glucose,Urine (UA) 500 mg/dL (Normal); Ketones,Urine Negative (Negative); Leukocyte Esterase,Urine Negative (Negative); Nitrite,Urine Negative (Negative); PH,Urine 5.5 pH Units (5.0-8.0); Protein,Urine Negative (Neg-Trace); Urobilinogen,Urine Normal (Normal)
[2018-10-05] MEDS ORDERED: 0.9 % Sodium Chloride 250 ML IVC ONE (02:25)
[2018-10-05] MEDS ORDERED: Levofloxacin 750 MG/150 ML 750 MG/150 ML BAG IVPB ONE (03:16)
[2018-10-05] MEDS: Ipratropium/Albuterol Neb 3 ML IH SCH ×2 (04:00→08:15)
[2018-10-05] MEDS: ALPRAZolam 0.5 MG TABLET PO SCH ×4 (04:56→22:37)
[2018-10-05 05:26] LABS: Basophils % 0.2 %; Hematocrit 29.3 % (37.5-50.1); Hemoglobin 9.5 g/dL (12.9-16.9); Immature Granulocytes % 0.6 % (0-4); Lymphocytes # 0.4 K/mcL (0.6-4.6); Lymphocytes % 3.5 %; Mean Corpuscular HGB Conc 32.4 g/dL (31.6-35.5); Mean Corpuscular Hemoglobin 30.7 pg (28.0-33.3); Mean Corpuscular Volume 94.8 fL (83.0-100.0); Mean Platelet Volume 10.1 fL (9.4-12.4); Monocytes # 0.1 K/mcL (0.0-1.3); Monocytes % 1.2 %; Platelet Count 252 K/mcL (140-400); Red Blood Count 3.09 M/mcL (4.19-5.50); Red Cell Distribution Width 13.4 % (11.5-14.5); Segmented Neutrophils % 94.5 %
[2018-10-05 05:31] LABS: Neutrophils # 11.3 K/mcL (1.6-8.9)
[2018-10-05 05:43] LABS: BUN/Creatinine Ratio 18 (6-26); Blood Urea Nitrogen 15 mg/dL (8-23); Calcium 8.6 mg/dL (8.6-10.3); Carbon Dioxide 24 mEq/L (23-29); Chloride 105 mEq/L (98-107); Glucose 285 mg/dL (70-105); Osmolality,Calculated 293 (280-300); Potassium 4.3 mEq/L (3.5-5.1); Sodium 136 mEq/L (136-145); eGFR For Non-African Americans > 60 (> 60)
[2018-10-05] MEDS: Tiotropium 18 MCG inhalation IH SCH ×2 (08:15→08:19)
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
[2018-10-05] MEDS: Lisinopril 20 MG TABLET PO SCH (09:18)
[2018-10-05] MEDS: cefTRIAXone 1,000 MG in Water for inj. (sterile) 20 ML 10 ML IVP SCH (09:18)
[2018-10-05] MEDS: (Breo Ellipta 100-25 Mcg Inh) IH SCH (09:19)
[2018-10-05] MEDS: Azithromycin 500 MG in D5% in Water 250 ML IVPB SCH (09:22)
[2018-10-05] MEDS: Budesonide/Formoterol 160/4.5 1 PUFF INH IH SCH ×2 (09:53→21:51)
[2018-10-05 12:47] LABS: Phosphorous 1.9 mg/dL (2.7-4.5)
[2018-10-05 13:02] LABS: Thyroid Stimulating Hormone 0.06 mcIU/mL (0.340-5.600)
[2018-10-05 22:22] LABS: Folate 10.4 ng/mL (3.0-16.0)
[2018-10-06] MEDS: ALPRAZolam 0.5 MG TABLET PO SCH ×4 (04:00→23:23)
[2018-10-06 05:40] LABS: Basophils # 0.1 K/mcL (0.0-0.2); Basophils % 0.4 %; Hematocrit 30.9 % (37.5-50.1); Immature Granulocytes % 0.8 % (0-4); Lymphocytes # 2.1 K/mcL (0.6-4.6); Lymphocytes % 12.8 %; Mean Corpuscular HGB Conc 32.4 g/dL (31.6-35.5); Mean Corpuscular Volume 95.7 fL (83.0-100.0); Mean Platelet Volume 9.9 fL (9.4-12.4); Monocytes # 1.2 K/mcL (0.0-1.3); Platelet Count 320 K/mcL (140-400); Red Blood Count 3.23 M/mcL (4.19-5.50); Red Cell Distribution Width 13.5 % (11.5-14.5)
[2018-10-06 05:49] LABS: Neutrophils # 13.1 K/mcL (1.6-8.9)
[2018-10-06] MEDS: (Breo Ellipta 100-25 Mcg Inh) IH SCH (08:30)
[2018-10-06] MEDS: Lisinopril 20 MG TABLET PO SCH (08:30)
[2018-10-06] MEDS: cefTRIAXone 1,000 MG in Water for inj. (sterile) 20 ML 10 ML IVP SCH (08:31)
[2018-10-06] MEDS: Azithromycin 500 MG in D5% in Water 250 ML IVPB SCH (08:32)
[2018-10-06] MEDS: Budesonide/Formoterol 160/4.5 1 PUFF INH IH SCH ×2 (09:09→21:40)
[2018-10-06] MEDS: Tiotropium 18 MCG inhalation IH SCH (09:09)
--- NOTE | 2018-10-06 10:58 | Internal Med Progress Note ---
Date of Encounter: 10/06/18 Time of Encounter: 10:45 - Assessment and plan (1) Pneumonia Current Visit: Yes Status: Acute Assessment and plan: October 06. WBC has risen to 16.6 but left shift on differential has significantly improved. Chest CT will be done to further evaluate. Discontinue Rocephin and Zithromax and start IV Levaquin with doxycycline. Qualifiers: Pneumonia type: due to unspecified organism Laterality: bilateral Lung location: unspecified part of lung Qualified Code(s): J18.9 - Pneumonia, unspecified organism (2) COPD exacerbation Current Visit: No Status: Acute Assessment and plan: October 06. Continue present aerosol Rx and change antibiotics as above. (3) Anemia Current Visit: Yes Status: Acute Assessment and plan: October 06. Anemia testing shows iron 24, transferrin saturation 10%, transferrin 180, ferritin 463, B12 442, and folate 10.4. Start ferrous sulfate with ascorbic acid in a.m. Qualifiers: Anemia type: unspecified type Qualified Code(s): D64.9 - Anemia, unspecified (4) Hypertension Current Visit: No Status: Chronic Assessment and plan: October 06. Continue lisinopril. Qualifiers: Hypertension type: essential hypertension Qualified Code(s): I10 - Essential (primary) hypertension (5) Hypothyroidism Current Visit: Yes Status: Acute Assessment and plan: October 06. TSH suppressed at 0.060. Remain off Synthroid. Qualifiers: Hypothyroidism type: unspecified Qualified Code(s): E03.9 - Hypothyroidism, unspecified - Subjective Interval history: October 06. He complains of worsening dyspnea and not feeling well. - Constitutional Vitals: Temp Pulse Resp BP Pulse Ox 97.3 F L 105 28 113/71 94 10/06/18 10:19 10/06/18 10:19 10/06/18 10:19 10/06/18 10:19 10/06/18 10:19 Exam: He is lying in bed and appears more dyspneic. He has prolonged expiratory phase with mild diffuse wheezing. No inspiratory crackles are heard. He is appropriate in conversation. I reviewed his medications and lab results. Internal Medicine: Result - Labs CBC & Chem 7: 10/06/18 04:43 10/05/18 04:52 Labs: Short CBC 10/06/18 Range/Units 04:43 WBC 16.6 H (4.3-11.1) K/mcL Hgb 10.0 L (12.9-16.9) g/dL Hct 30.9 L (37.5-50.1) % Plt Count 320 (140-400) K/mcL Neutrophils # 13.1 H (1.6-8.9) K/mcL - ABG Interpretation ABG results: PT/INR, D-dimer PT 15.0 Seconds (9.4-12.1) H 10/04/18 21:38 Consult Discharge Plan - Plan Referrals: Mary Beth Euceda, [employer] SALES REPRESENTATIVE [Primary Care Provider] - 1 week
[2018-10-06] MEDS: Levofloxacin 750 MG/150 ML 750 MG/150 ML BAG IVPB SCH (12:25)
[2018-10-06] MEDS: Doxycycline 100 MG in 0.9 % Sodium Chloride Mini Bag 100 ML IVPB SCH ×2 (14:08→17:53)
[2018-10-06 22:32] LABS: Adenovirus Not Detected (Not Detect); Bordetella Pertussis Not Detected (Not Detect); Chlamydophila pneumoniae Not Detected (Not Detect); Coronavirus 229E Not Detected (Not Detect); Coronavirus HKU1 Not Detected (Not Detect); Coronavirus NL63 Not Detected (Not Detect); Coronavirus OC43 Not Detected (Not Detect); Human Metapneumovirus Not Detected (Not Detect); Human Rhinovirus/Enterovirus Not Detected (Not Detect); Influenza A Subtype 2009 H1 Not Detected (Not Detect); Influenza A Untypeable Not Detected (Not Detect); Influenza B Not Detected (Not Detect); Mycoplasma pneumoniae Not Detected (Not Detect); Parainfluenza Virus 1 Not Detected (Not Detect); Parainfluenza Virus 2 Not Detected (Not Detect); Parainfluenza Virus 3 Not Detected (Not Detect); Parainfluenza Virus 4 Not Detected (Not Detect); Respiratory Syncytial Virus Not Detected (Not Detect)
[2018-10-07] MEDS: ALPRAZolam 0.5 MG TABLET PO SCH ×2 (05:48→11:22)
[2018-10-07 05:49] LABS: Basophils # 0.1 K/mcL (0.0-0.2); Basophils % 0.7 %; Eosinophils # 0.1 K/mcL (0.0-0.6); Eosinophils % 0.8 %; Hematocrit 31.3 % (37.5-50.1); Hemoglobin 10.2 g/dL (12.9-16.9); Immature Granulocytes % 0.8 % (0-4); Lymphocytes % 18.9 %; Mean Corpuscular HGB Conc 32.6 g/dL (31.6-35.5); Mean Corpuscular Hemoglobin 30.6 pg (28.0-33.3); Mean Platelet Volume 9.6 fL (9.4-12.4); Monocytes % 8.3 %; Neutrophils # 8.4 K/mcL (1.6-8.9); Platelet Count 335 K/mcL (140-400); Red Blood Count 3.33 M/mcL (4.19-5.50); Red Cell Distribution Width 13.2 % (11.5-14.5); Segmented Neutrophils % 70.5 %
[2018-10-07 05:56] LABS: Lymphocytes # 2.3 K/mcL (0.6-4.6)
[2018-10-07] MEDS: Doxycycline 100 MG in 0.9 % Sodium Chloride Mini Bag 100 ML IVPB SCH (06:05)
[2018-10-07 06:12] LABS: BUN/Creatinine Ratio 18 (6-26); Blood Urea Nitrogen 12 mg/dL (8-23); Calcium 9.1 mg/dL (8.6-10.3); Carbon Dioxide 33 mEq/L (23-29); Chloride 101 mEq/L (98-107); Glucose 120 mg/dL (70-105); Osmolality,Calculated 287 (280-300); Potassium 3.9 mEq/L (3.5-5.1); Sodium 138 mEq/L (136-145); eGFR For Non-African Americans > 60 (> 60)
[2018-10-07] MEDS ORDERED: Ascorbic Acid 500 MG TABLET PO SCH (06:30)
[2018-10-07 07:47] VITALS: BP 128/83
--- NOTE | 2018-10-07 09:00 | Electrocardiograph Report ---
[place] [id number] Test Date: 2018-10-04 Pat Name: Dean Maciel Department: EDP-16 Room: [facility] Gender: M Assembly Operator: : 1955 Requested By: Nadege Pettit Order Number: [id number] Reading MD: Cruzito Chávez Measurements Intervals [place] Rate: 113 P: 85 CO: 126 QRS: 78 QRSD: 89 T: 30 QT: 288 QTc: 395 Interpretive Statements Sinus tachycardia Nonspecific ST and T-wave changes Artifact Electronically Signed On 10-07-2018 8:59:27 EDT by Cruzito Chávez
[2018-10-07] MEDS: Lisinopril 20 MG TABLET PO SCH (09:26)
[2018-10-07] MEDS: Budesonide/Formoterol 160/4.5 1 PUFF INH IH SCH (09:41)
[2018-10-07] MEDS: Tiotropium 18 MCG inhalation IH SCH (09:42)
[2018-10-07] MEDS: (Breo Ellipta 100-25 Mcg Inh) IH SCH (09:48)
--- NOTE | 2018-10-07 10:21 | Discharge Summary ---
Orders not resulted at time of discharge: Pending orders 10/04/18 21:38 Culture,Blood [] Stat Date of Encounter: 10/07/18 Time of Encounter: 10:13 - Discharge Diagnosis (1) Pneumonia Priority: Primary Status: Acute Qualifiers: Pneumonia type: due to unspecified organism Laterality: bilateral Lung location: unspecified part of lung Qualified Code(s): J18.9 - Pneumonia, unspecified organism (2) COPD exacerbation Priority: Secondary Status: Acute (3) Anemia Priority: Secondary Status: Acute Qualifiers: Anemia type: unspecified type Qualified Code(s): D64.9 - Anemia, unspecified (4) Hypertension Priority: Secondary Status: Chronic Qualifiers: Hypertension type: essential hypertension Qualified Code(s): I10 - Essential (primary) hypertension (5) Hypothyroidism Priority: Secondary Status: Acute Qualifiers: Hypothyroidism type: unspecified Qualified Code(s): E03.9 - Hypothyroidism, unspecified Hospital course: Mr. Maciel is a 63 year old male who came to emergency room complaining of 3 day history of increased dyspnea with cough, fever, and nonbloody vomiting and diarrhea. He was evaluated in emergency room and was found to have evidence of pneumonia on chest x-ray. Influenza testing was negative. He was admitted to [facility] floor for ongoing care needs. Initial orders written by the emergency room physician. I saw him on October 05 and performed the history and physical. He was given IV Rocephin and Zithromax in emergency room. WBC initially decreased to 11.9 but venus to 16.6 on October 06. He was changed to IV Levaquin and doxycycline. WBC improved again to 11.9 the day of discharge with resolution of left shift. He will continue with antibiotics and probiotic for 5 additional days at discharge. Chest CT showed improvement in the right upper lobe and bilateral lower lobes compared to previous CT. There appeared to be left upper lobe infiltrate which was new. PCP can follow up as needed to ensure resolution. Anemia testing showed iron 24, transferrin saturation 10%, transferrin 180, f erritin 463, B12 442, and folate 10.4. He was started on ferrous sulfate with ascorbic acid. TSH returned suppressed at 0.060. I told him to discontinue Synthroid. His PCP can monitor labs. On October 07 he felt improved and stable for discharge home. He will follow with his PCP Mary Beth Euceda CNP within 1 week. - Time Spent with Patient Total time spent providing and/or coordinating discharge services: - Discharge Medications Prescriptions: New Ascorbic Acid [Vitamin C] 500 mg PO 0630 #30 tablet Doxycycline 100 mg PO BID #10 capsule Ferrous Sulfate 325 mg PO 0630 #30 tablet levoFLOXacin [Levaquin] 750 mg PO DAILY #5 tablet Continue Oxygen 2 l IH AD Lisinopril 20 mg PO DAILY Paroxetine 40 mg PO DAILY Daliresp 500 mcg PO DAILY Atorvastatin [Lipitor] 40 mg PO HS ALPRAZolam [Xanax 0.5 MG Tablet] 0.5 mg PO Q6H Tramadol HCl [Ultram] 100 mg PO TID PRN PRN Reason: Pain predniSONE [PredniSONE] 20 mg PO DAILY Tiotropium [Spiriva] 18 mcg IH 0700 Fluticasone/Vilanterol [Breo Ellipta 100-25 Mcg INH] 1 each IH Lactobacillus [Culturelle] 1 each PO BID #10 cap.sprink Discontinued Ibuprofen [Ibu] 800 mg PO Cefuroxime PO [Ceftin] 500 mg PO Q12HR #4 tablet Azithromycin [Zithromax] 250 mg PO DAILY #2 tablet Home Medications: Daliresp 500 mcg PO DAILY 04/24/15 [History] Lisinopril 20 mg PO DAILY 04/24/15 [History] Oxygen 2 l IH AD 04/24/15 [History] Paroxetine 40 mg PO DAILY 04/24/15 [History] ALPRAZolam [Xanax 0.5 MG Tablet] 0.5 mg PO Q6H 10/29/17 [History] Atorvastatin [Lipitor] 40 mg PO HS 10/29/17 [History] Fluticasone/Vilanterol [Breo Ellipta 100-25 Mcg INH] 1 each IH 08/13/18 [History] Tiotropium [Spiriva] 18 mcg IH 0700 08/13/18 [History] Tramadol HCl [Ultram] 100 mg PO TID PRN 08/13/18 [History] predniSONE [PredniSONE] 20 mg PO DAILY 08/13/18 [History] Ascorbic Acid [Vitamin C] 500 mg PO 0630 #30 tablet 10/07/18 [Rx] Doxycycline 100 mg PO BID #10 capsule 10/07/18 [Rx] Ferrous Sulfate 325 mg PO 0630 #30 tablet 10/07/18 [Rx] Lactobacillus [Culturelle] 1 each PO BID #10 cap.sprink 10/07/18 [Rx] levoFLOXacin [Levaquin] 750 mg PO DAILY #5 tablet 10/07/18 [Rx] Allergies/Adverse Reactions: Allergy/AdvReac Type Severity Reaction Status Date / Time No Known Allergies Allergy Verified 08/13/18 23:19 Date of admission: 10/05/18 09:36 Primary care physician: Mary Beth Euceda CNP - Constitutional Vitals: Temp Pulse Resp BP Pulse Ox 98.1 F 96 18 128/83 95 10/07/18 07:44 10/07/18 07:44 10/07/18 07:44 10/07/18 07:44 10/07/18 07:44 - Patient Status Disposition: Home, Self-Care Condition: Good - Discharge Instructions Follow Up With: Mary Beth Euceda CNP [Primary Care Provider] - 1 week - Diet and Activity Activity: resume usual activities as tolerated Diet: advance to your usual diet
[2018-10-07] MEDS: Levofloxacin 750 MG/150 ML 750 MG/150 ML BAG IVPB SCH (11:23)
== END 2018-10-07 12:52 | disposition home or self-care (01) | DRG 194 ==
LOC: EMEROOPIK 20:59 → INPPIK 20:59
PROVIDERS: ADMIT Internal Medicine; ATTEND Internal Medicine

== ENCOUNTER 2019-05-30 10:23 | Inpatient (IN) ==
[2019-05-30] MEDS ORDERED: methylPREDNISolone 125 MG/2 ML VIAL IVP ONE (11:00)
[2019-05-30] MEDS ORDERED: levoFLOXacin 750 MG/150 ML 750 MG/150 ML BAG IVPB ONE (12:04)
[2019-05-30 12:22] LABS: Basophils # 0.1 K/mcL (0.0-0.2); Basophils % 0.5 %; Eosinophils # 0.1 K/mcL (0.0-0.6); Eosinophils % 0.7 %; Hematocrit 36.5 % (37.5-50.1); Hemoglobin 12.5 g/dL (12.9-16.9); Immature Granulocytes % 0.4 % (0-4); Lymphocytes # 3.8 K/mcL (0.6-4.6); Lymphocytes % 31.4 %; Mean Corpuscular HGB Conc 34.2 g/dL (31.6-35.5); Mean Corpuscular Hemoglobin 30.7 pg (28.0-33.3); Mean Corpuscular Volume 89.7 fL (83.0-100.0); Mean Platelet Volume 9.4 fL (9.4-12.4); Monocytes # 0.8 K/mcL (0.0-1.3); Monocytes % 6.9 %; Neutrophils # 7.3 K/mcL (1.6-8.9); Platelet Count 312 K/mcL (140-400); Red Blood Count 4.07 M/mcL (4.19-5.50); Segmented Neutrophils % 60.1 %; White Blood Count 12.1 K/mcL (4.3-11.1)
[2019-05-30 12:38] LABS: BUN/Creatinine Ratio 23 (6-26); Blood Urea Nitrogen 17 mg/dL (8-23); Calcium 9.1 mg/dL (8.6-10.3); Carbon Dioxide 32 mEq/L (23-29); Chloride 100 mEq/L (98-107); Glucose 129 mg/dL (70-105); Osmolality,Calculated 289 (280-300); Potassium 3.3 mEq/L (3.5-5.1); Sodium 138 mEq/L (136-145); eGFR For African Americans > 60 (> 60); eGFR For Non-African Americans > 60 (> 60)
[2019-05-30] MEDS: ALPRAZolam 0.5 MG TABLET PO SCH (18:20)
[2019-05-31] MEDS: ALPRAZolam 0.5 MG TABLET PO SCH ×4 (00:15→17:16)
[2019-05-31 07:19] LABS: Basophils % 0.2 %; Hematocrit 35.3 % (37.5-50.1); Hemoglobin 11.9 g/dL (12.9-16.9); Immature Granulocytes % 0.4 % (0-4); Lymphocytes # 2.3 K/mcL (0.6-4.6); Lymphocytes % 19.5 %; Mean Corpuscular HGB Conc 33.7 g/dL (31.6-35.5); Mean Corpuscular Hemoglobin 30.4 pg (28.0-33.3); Mean Corpuscular Volume 90.1 fL (83.0-100.0); Mean Platelet Volume 9.7 fL (9.4-12.4); Monocytes # 0.9 K/mcL (0.0-1.3); Monocytes % 7.1 %; Platelet Count 305 K/mcL (140-400); Red Blood Count 3.92 M/mcL (4.19-5.50); Red Cell Distribution Width 11.9 % (11.5-14.5); Segmented Neutrophils % 72.8 %
[2019-05-31 07:23] LABS: Neutrophils # 8.7 K/mcL (1.6-8.9)
[2019-05-31 07:35] LABS: Alanine Aminotransferase 11 Units/L (7-52); Albumin 3.8 g/dL (3.5-5.7); Albumin/Globulin Ratio 1.5 (1.1-2.2); Alkaline Phosphatase 74 Units/L (34-104); Aspartate Amino Transferase 10 Units/L (13-39); BUN/Creatinine Ratio 21 (6-26); Bilirubin,Total 0.3 mg/dL (0.3-1.0); Blood Urea Nitrogen 16 mg/dL (8-23); Calcium 9.1 mg/dL (8.6-10.3); Carbon Dioxide 31 mEq/L (23-29); Chloride 103 mEq/L (98-107); Globulin 2.5 g/dL (2.4-3.5); Glucose 129 mg/dL (70-105); Osmolality,Calculated 293 (280-300); Potassium 4.3 mEq/L (3.5-5.1); Sodium 140 mEq/L (136-145); Total Protein 6.3 g/dL (6.4-8.9); eGFR For African Americans > 60 (> 60); eGFR For Non-African Americans > 60 (> 60)
[2019-05-31] MEDS: Lisinopril 20 MG TABLET PO SCH (09:04)
[2019-05-31] MEDS: DALIRESP 500MCG PO SCH (09:05)
[2019-05-31] MEDS: BREO ELLIPTA 100/25 IH SCH (09:07)
[2019-05-31 09:56] LABS: Folate 8.1 ng/mL (3.0-16.0)
[2019-06-01] MEDS: ALPRAZolam 0.5 MG TABLET PO SCH ×4 (00:37→17:35)
[2019-06-01] MEDS: DALIRESP 500MCG PO SCH (08:09)
[2019-06-01] MEDS: Lisinopril 20 MG TABLET PO SCH (08:09)
[2019-06-01] MEDS: BREO ELLIPTA 100/25 IH SCH (09:18)
[2019-06-01] MEDS: Lactobacillus 1 EACH CAP.SPRINK PO SCH ×2 (13:00→20:07)
[2019-06-02] MEDS: ALPRAZolam 0.5 MG TABLET PO SCH ×4 (00:18→17:37)
[2019-06-02 05:59] LABS: Basophils # 0.1 K/mcL (0.0-0.2); Basophils % 0.9 %; Eosinophils # 0.2 K/mcL (0.0-0.6); Eosinophils % 2.2 %; Hematocrit 36.4 % (37.5-50.1); Hemoglobin 12.1 g/dL (12.9-16.9); Immature Granulocytes % 0.9 % (0-4); Lymphocytes # 2.3 K/mcL (0.6-4.6); Lymphocytes % 28.6 %; Mean Corpuscular HGB Conc 33.2 g/dL (31.6-35.5); Mean Corpuscular Hemoglobin 30.6 pg (28.0-33.3); Mean Corpuscular Volume 91.9 fL (83.0-100.0); Mean Platelet Volume 9.7 fL (9.4-12.4); Monocytes # 0.8 K/mcL (0.0-1.3); Monocytes % 9.4 %; Neutrophils # 4.7 K/mcL (1.6-8.9); Platelet Count 261 K/mcL (140-400); Red Blood Count 3.96 M/mcL (4.19-5.50); Red Cell Distribution Width 11.9 % (11.5-14.5); White Blood Count 8.1 K/mcL (4.3-11.1)
[2019-06-02 06:15] LABS: BUN/Creatinine Ratio 26 (6-26); Blood Urea Nitrogen 21 mg/dL (8-23); Calcium 8.7 mg/dL (8.6-10.3); Carbon Dioxide 33 mEq/L (23-29); Chloride 102 mEq/L (98-107); Glucose 182 mg/dL (70-105); Osmolality,Calculated 300 (280-300); Potassium 4.1 mEq/L (3.5-5.1); Sodium 141 mEq/L (136-145); eGFR For African Americans > 60 (> 60); eGFR For Non-African Americans > 60 (> 60)
[2019-06-02 06:27] VITALS: BP 113/73
[2019-06-02] MEDS: BREO ELLIPTA 100/25 IH SCH (10:06)
[2019-06-02] MEDS: Lactobacillus 1 EACH CAP.SPRINK PO SCH (10:26)
[2019-06-02] MEDS: DALIRESP 500MCG PO SCH (10:27)
[2019-06-02 11:29] LABS: Estimated Average Glucose 151 mg/dl
[2019-06-02] MEDS ORDERED: FLU Vac QV 19-20 (6Month+)/PF 0.5 ML SYRINGE IM ONE (16:44)
== END 2019-06-02 18:26 | disposition home or self-care (01) | DRG 190 ==
LOC: INPPIK 10:23 → EMEROOPIK 10:23 → INPPIK 13:30
PROVIDERS: ADMIT Family Medicine; ATTEND Family Medicine